=== PATIENT | female | born 1955 | race Caucasian/White ===

== ENCOUNTER 2019-01-02 11:07 | Emergency (ER) | payer MEDICAID, OTHER ==
[~2019-01-02] VITALS: Ht 162.6 cm; Wt 104.3 kg
[~2019-01-02 11:07] MED LIST: ALPR0.25 PO; ASPI-1154 PO; LEVO100T9 PO; LISI-600 PO
[2019-01-02 11:10] VITALS: BP_SYST 140
--- NOTE | 2019-01-02 11:14 | NUR ---
Arrived via BLS ambulance from [facility] on a 5150 for SI with compliant of intractable vomiting. 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 Patient is awake, alert and oriented. C/O 6/10 headache, reports nausea no active vomiting. Patient to ER bed 5 to gown for evaluation. Side rails up. Report given to Xavier CALL.
--- NOTE | 2019-01-02 11:15 | NUR ---
Patient is awake, alert, and oriented x4. Patient came in from [facility] via S for vomiting. Patient is resting quietly in bed. No signs or symptoms of disterss noted.
--- NOTE | 2019-01-02 11:30 | NUR ---
ER Dr. Betancur with ADMINISTRATIVE COORDINATOR Student Jade at bedside examining patient.
[2019-01-02 11:44] LABS: WHITE BLOOD COUNT (AUTO) 5.1 K/uL (4.8-10.8)
[2019-01-02 11:45] LABS: BASOPHILS % (AUTO) 2.3 % (0.0-2.0); EOSINOPHILS % (AUTO) 0.3 % (0.0-4.0); HEMATOCRIT 39.2 % (36-48); HEMOGLOBIN 12.8 g/dL (12.0-16.0); MEAN CORPUSCULAR HEMOGLOBIN 29 pg (27-31); MEAN CORPUSCULAR HGB CONC 33 % (32-36); MEAN CORPUSCULAR VOLUME 89 fL (79.0-98.0); MONOCYTES % (AUTO) 9.1 % (1.7-9.3); NEUTROPHILS % (AUTO) 68.3 % (40.0-70.0); PLATELET COUNT (AUTO) 160 K/uL (130-430); RED BLOOD CELL COUNT(AUTO) 4.38 MIL/uL (4.2-6.2); RED CELL DISTRIBUTION WIDTH 15.6 % (9.0-15.0)
[2019-01-02] MEDS ORDERED: NACL 0.9% 1,000 ML IV ONE (11:45)
[2019-01-02] MEDS ORDERED: LORazepam 2 MG/ML VIAL (FOR ER USE) IVP ONE (11:45)
[2019-01-02 11:46] LABS: BASOPHILS # (AUTO) 0.1 K/uL (0.0-0.2); MONOCYTES # (AUTO) 0.5 K/uL (0.0-1.0); NEUTROPHILS # (AUTO) 3.5 K/uL (1.8-7.7)
[2019-01-02 11:56] LABS: ANION GAP 9 (5-15); CALCIUM 8.2 mg/dL (8.4-11.0); CHLORIDE 97 mmol/L (98-107); CREATININE 0.74 mg/dL (0.55-1.30); GLUCOSE 99 mg/dL (70-99); POTASSIUM 3.5 mmol/L (3.5-5.1); SODIUM SERUM 134 mmol/L (136-145); UREA NITROGEN, BLOOD 11 mg/dL (8-21)
[2019-01-02 12:01] LABS: ALANINE AMINOTRANSFERASE 77 U/L (12-78); ALBUMIN 3.8 g/dL (3.4-4.8); ASPARTATE AMINOTRANSFERASE 65 U/L (10-37); TOTAL BILIRUBIN 1.7 mg/dL (0.0-1.0)
[2019-01-02 12:02] LABS: ALCOHOL, BLOOD < 3 mg/dL (<10); GFR AFRICAN AMERICAN 102 mL/min (>90)
[2019-01-02] MEDS ORDERED: ONDANSETRON HCL 4 MG/2 ML VIAL IVP ONE (12:30)
--- NOTE | 2019-01-02 13:30 | NUR ---
Patient to be transferred to [facility]. Is being transferred due to higher level of care. Receiving facility has accepting physician and available space. ER physician has signed transfer form. Patient or responsible libertarian has agreed to transfer and signed form. Patient belongings inventoried and will be sent with patient. Copy of nursing notes, lab reports, EKG, Physicians Orders and X-rays to be sent with patient. Report called to Kenzie CALL at receiving facility. Receiving physician is Cameron. [facility] ambulance service has been called for transfer. ETA is [phone] .
[2019-01-02 13:55] VITALS: BP_SYST 123
== END 2019-01-02 13:55 | disposition home or self-care (01) ==
LOC: SED 11:07
DX: K29.20 Alcoholic gastritis without bleeding (principal); F10.239 Alcohol dependence with withdrawal, unspecified; E03.9 Hypothyroidism, unspecified; I10 Essential (primary) hypertension; Z79.899 Other long term (current) drug therapy; Y90.0 Blood alcohol level of less than 20 mg/100 ml
CPT/HCPCS: 36415; 80053; 85025; 96361; 96374; 96375; 99283; G0482; J2060; J2405; J7030

== ENCOUNTER 2023-06-23 12:20 | Day surgery (SDC) | payer OTHER, MEDICAID ==
[~2023-06-23] VITALS: Ht 162.6 cm; Wt 97.6 kg
[~2023-06-23 12:20] MED LIST changes: -ASPI-1154 PO; +ASPI-1457 PO; -LISI-600 PO; +LISI20TA30 PO
[2023-06-23] MEDS ORDERED: MIDAZOLAM HCL 5 MG/5 ML VIAL ONE (12:59)
[2023-06-23] MEDS ORDERED: fentaNYL CITRATE/PF 100 MCG/2 ML AMP ONE (12:59)
[2023-06-23] MEDS ORDERED: SIMETHICONE 40 MG/0.6 ML ML ONE (13:02)
[2023-06-23 16:48] VITALS: O2SAT 98
[2023-06-23 18:01] VITALS: BP_SYST 133; PULSE 57; RESP 17
== END 2023-06-23 15:09 | disposition home or self-care (01) ==
LOC: SDS 12:20
PROVIDERS: ATTEND Surgery
DX: Z12.11 Encounter for screening for malignant neoplasm of colon (principal); K57.30 Diverticulosis of large intestine without perforation or abscess without bleeding; K64.8 Other hemorrhoids
CPT/HCPCS: 45380; 99152; 88305; 99153; G0378; J2250; J3010